=== PATIENT | male | born 1960 | race Caucasian/White ===

== ENCOUNTER → 2023-05-06 07:39 | Outpatient (REF) | payer OTHER, SELFPAY | LOC: PAVMRI 07:39 | PROVIDERS: ATTENDING PHYSICIAN Orthopaedic Surgery Sports Medicine; FAMILY PHYSICIAN Internal Medicine | DX: S43.91XA Sprain of unspecified parts of right shoulder girdle, initial encounter (principal); M25.511 Pain in right shoulder | CPT/HCPCS: 73221 ==

== ENCOUNTER → 2023-06-23 08:21 | Outpatient (REF) | payer OTHER, SELFPAY | LOC: DHCBC HW 08:21 | PROVIDERS: ATTENDING PHYSICIAN Internal Medicine Cardiovascular Disease; FAMILY PHYSICIAN Internal Medicine | DX: I10 Essential (primary) hypertension (principal) | CPT/HCPCS: 93306 ==

== ENCOUNTER → 2023-07-02 07:32 | Outpatient (REF) | payer OTHER, SELFPAY | LOC: MRI 07:32 | PROVIDERS: ATTENDING PHYSICIAN Physical Medicine & Rehabilitation Sports Medicine; FAMILY PHYSICIAN Internal Medicine | DX: M79.18 Myalgia, other site (principal); M62.89 Other specified disorders of muscle; M25.552 Pain in left hip | CPT/HCPCS: 72195 ==

== ENCOUNTER → 2024-12-13 12:20 | Outpatient (REF) | payer OTHER, SELFPAY | LOC: HWRAD 12:20 | PROVIDERS: ATTENDING PHYSICIAN Anesthesiology; FAMILY PHYSICIAN Internal Medicine | DX: M54.16 Radiculopathy, lumbar region (principal) | CPT/HCPCS: 72131 ==

== ENCOUNTER → 2025-03-14 07:13 | Outpatient (REF) | payer OTHER, SELFPAY | LOC: PAVMRI 07:13 | PROVIDERS: ATTENDING PHYSICIAN Physician Assistant Surgical; FAMILY PHYSICIAN Internal Medicine; REFERRING PHYSICIAN Anesthesiology Pain Medicine | DX: M54.12 Radiculopathy, cervical region (principal) | CPT/HCPCS: 72141 ==